=== PATIENT | female | born 1970 | race Caucasian/White ===

== ENCOUNTER 2023-01-13 08:07 | Emergency (ER) | payer OTHER, SELFPAY ==
[2023-01-13 08:13] VITALS: BP 135/81; PULSE 73; RESP 18; TEMP 36.8; O2SAT 96
--- NOTE | 2023-01-13 08:23 | PC.NURSE ---
BS 124
[2023-01-13 08:24] LABS: Glucose Point of Care 124 mg/dl (65-105)
[2023-01-13 08:37] LABS: Basophils Percent Auto 0.4 % (0.2-1.2); Eosinophils Percent Auto 0.2 % (0-4.4); Hematocrit 43.4 % (37.0-47.0); Hemoglobin 15.5 g/dL (12.0-15.0); Immature Granulocyte Absolute 0.01 K/mm3 (0.00-0.031); Immature Granulocyte Percent A 0.2 % (0-0.5); Lymphocytes Absolute Auto 1.08 K/mm3 (0.9-3.2); Mean Corpuscular HGB Conc 35.7 g/dl (32-36); Mean Corpuscular Hemoglobin 35.8 pg (26-34); Mean Corpuscular Volume 100.2 fl (80-100); Mean Platelet Volume 9.3 fl (7.4-10.4); Monocytes Absolute Auto 0.5 K/mm3 (0.1-0.6); Monocytes Percent Auto 10.5 % (2.6-8.5); Neutrophils Absolute Auto 3.5 K/mm3 (1.3-6.7); Neutrophils Percent Auto 67.7 % (45.5-73.1); Platelet Count Result 148 k/mm3 (150-375); Red Blood Count 4.33 M/mm3 (4.2-5.4); Red Cell Distribution Width 11.4 % (11.5-14.5); White Blood Count 5.2 K/mm3 (4.5-10.0)
[2023-01-13] MEDS: SODIUM CHLORIDE 0.9% IV 1,000 ML 999 ML IV CONT (08:38)
[2023-01-13] MEDS: ONDANSETRON INJ 4 MG/2 ML VIAL IV PUSH (08:38)
[2023-01-13 08:52] LABS: Alanine Aminotransferase 30 U/L (6-35); Albumin Level 4.7 g/dL (3.5-5.1); Alkaline Phosphatase 74 U/L (38-126); Anion Gap 10 mmol/L (8-16); Aspartate Amino Transferase 33 U/L (14-36); Bilirubin,Total 1.3 mg/dL (0.2-1.3); Blood Urea Nitrogen 18 mg/dL (7-17); Calcium 8.9 mg/dL (8.4-10.2); Carbon Dioxide 22 mmol/L (22-30); Chloride 104 mmol/L (98-107); Estimated CRCL calculation 80 ml/min; Estimated Glomerular Filt Rate > 60; Glucose 117 mg/dL (65-110); Lipase 123 U/L (23-300); Potassium 3.8 mmol/L (3.4-5.0); Sodium 136 mmol/L (137-145)
[2023-01-13 09:13] LABS: Appearance Urine Cloudy (Clear); Bacteria Urine 3+ /hpf; Bilirubin Urine 2+ (Negative); Blood Urine Negative (Negative); Color Urine Dark Yellow (Yellow); Glucose Urine UA Negative (Negative); Ketones Urine 1+ mg/dL (Negative); Leukocyte Esterase Ur Trace LEU/UL (Negative); Mucus Urine Present /lpf; Nitrate Urine Negative (Negative); Protein Urine 1+ mg/dL (Negative); Squamous Epithelial Cell Urine Many /hpf (Few); WBC Urine 0-5 /hpf; pH Urine 5.5 (5.0-9.0)
[2023-01-13 09:14] LABS: Add Urine Microscopic? YES; Specific Grav Ur 1.036 (1.001-1.035)
[2023-01-13 09:40] VITALS: BP 119/75; PULSE 77; RESP 17; O2SAT 97
[2023-01-13 11:22] VITALS: BP 125/83; PULSE 71; RESP 17; O2SAT 97
--- NOTE | 2023-01-13 11:40 | ED.GENADULT ---
HPI - General Adult General Chief complaint: Nausea/Vomiting/Diarrhea Stated complaint: shaky/vomiting Time Seen by Provider: 01/13/23 08:15 History of Present Illness HPI narrative: Patient is a 52-year-old female who presents ER with concerns for dehydration. Reports she has been vomiting over the last week. She has tried Zofran without improvement. Rare diarrhea. No documented fevers but does feel chilled and warm at times. No abdominal discomfort. No chest pain or chest pressure. No urinary symptoms. Related Data Allergies Allergy/AdvReac Type Severity Reaction Status Date / Time aspirin Allergy Swelling Verified 01/13/23 08:26 of Lip/Tongue/Throat ibuprofen Allergy Swelling Verified 01/13/23 08:26 of Lip/Tongue/Throat ANTI-INFLAMMATORIES Allergy Swelling Uncoded 01/13/23 08:26 of Lip/Tongue/Throat Review of Systems Review of Systems: All systems reviewed & are unremarkable except as noted in HPI and below Constitutional: Constitutional: Reports chills, Reports fatigue and Denies fever(s) ENT: Denies nasal congestion and Denies sore throat Cardiovascular: Cardiovascular: Denies chest pain, Denies rapid heart rate and Denies radiating jaw, neck or arm pain Gastrointestinal: Gastrointestinal: Denies abdominal pain, Denies diarrhea, Reports nausea and Reports vomiting Genitourinary: Genitourinary: Denies dysuria and Denies flank pain PMFSH Past Medical History Medical History (Updated 01/13/23 @ 12:33 by Kwabena Huggins MD) Chronic bronchitis Rheumatoid arthritis Surgical History Surgical History (Updated 01/13/23 @ 12:33 by Kwabena Huggins MD) H/O sinus surgery Port-A-Cath in place Exam Narrative: GENERAL: Well-appearing, well-nourished, and in no acute distress. HEAD: Normocephalic, atraumatic. EYES: PERRL and EOMI. CHEST: Clear to auscultation. No respiratory distress. HEART: Regular rate and rhythm. Normal peripheral pulses. ABDOMEN: Soft, nontender, nondistended. EXTREMITIES: Normal range of motion. No edema. SKIN: Warm, dry, no rash. NEURO: Alert and oriented x3. PSYCH: Normal mood and affect. Course Course Emergency Course: Patient feels improved with IV fluid. No significant lab abnormalities outside of ketones in urine. Urine appears contaminated but given her symptoms she will be treated with antibiotics.. Patient does not require any additional antiemetics for home. Vital Signs Vital signs: Vital Signs Temperature 98.3 F 01/13/23 08:13 Pulse Rate 73 01/13/23 08:13 Respiratory Rate 18 01/13/23 08:13 Blood Pressure 135/81 01/13/23 08:13 Pulse Oximetry 96 01/13/23 08:13 Oxygen Delivery Autopap 01/13/23 08:13 Temperature 98.3 F 01/13/23 08:13 Pulse Rate 78 01/13/23 12:15 Respiratory Rate 18 01/13/23 12:15 Blood Pressure 127/80 01/13/23 12:15 Pulse Oximetry 96 01/13/23 12:15 Oxygen Delivery Autopap 01/13/23 08:13 Medical Decision Making Vital Signs Vital Signs: Vital Signs Temperature 98.3 F 01/13/23 08:13 Pulse Rate 73 01/13/23 08:13 Respiratory Rate 18 01/13/23 08:13 Blood Pressure 135/81 01/13/23 08:13 Pulse Oximetry 96 01/13/23 08:13 Oxygen Delivery Autopap 01/13/23 08:13 Temperature 98.3 F 01/13/23 08:13 Pulse Rate 78 01/13/23 12:15 Respiratory Rate 18 01/13/23 12:15 Blood Pressure 127/80 01/13/23 12:15 Pulse Oximetry 96 01/13/23 12:15 Oxygen Delivery Autopap 01/13/23 08:13 Lab Data 01/13/23 08:28 01/13/23 08:28 Labs: Lab Results 01/13/23 01/13/23 01/13/23 Range/Units 08:28 08:28 08:40 WBC 5.2 (4.5-10.0) K/mm3 RBC 4.33 (4.2-5.4) M/mm3 Hgb 15.5 H (12.0-15.0) g/dL Hct 43.4 (37.0-47.0) % MCV 100.2 H (80-100) fl MCH 35.8 H (26-34) pg MCHC 35.7 (32-36) g/dl RDW 11.4 L (11.5-14.5) % Plt Count 148 L (150-375) k/mm3 MPV 9.3 (7.4-10.4) fl Immat
[2023-01-13 12:15] VITALS: BP 127/80; PULSE 78; RESP 18; O2SAT 96
[2023-01-13] MEDS: HEPARIN SODIUM LOCK FLUSH 500 UNITS/5 ML VIAL (12:36)
== END 2023-01-13 12:37 | disposition home or self-care (01) ==
PROVIDERS: Emergency Provider Emergency Medicine; PCP Internal Medicine
DX: N39.0 Urinary tract infection, site not specified (principal); R11.2 Nausea with vomiting, unspecified
CPT/HCPCS: 36415; 80053; 81001; 82948; 83690; 85025; 96361; 96374; 99284; J1642; J2405; J7030